=== PATIENT | female | born 1940 | race Caucasian/White ===

== ENCOUNTER 2017-09-25 07:17 | Inpatient (IN) | payer MEDICARE, BC ==
[~2017-09-25] VITALS: Ht 157.5 cm; Wt 69.0 kg
[2017-09-25] VITALS (21 sets, daily range): BP systolic 110–157; BP diastolic 41–77
[~2017-09-25 07:17] MED LIST: APRESOLINE 50MG50 MG PO; ASPERDRINK81 MG PO; ASPIRIN 81MG TA81 MG PO; BENTYL GENERIC10 MG PO; CLOPIDOGREL75 M2 PO; CYCLOBENZAPRINE10 M2 PO; DILTIAZEM HYDR240 M1 PO; GABAPENTIN 100100 MG PO; ISOSORBIDE MON120 MG PO; LEVOTHYROXIN0.125 M1 PO; LISINOPRIL40 MG PO; MAG-OX 400400 MG PO; METFORMIN HYD1000 MG PO; METOPROLOL SUC100 M1 PO; MULTI VITAMINS1 TA1 PO; NOVOLIN 70/30 710 ML SC; PRAVACHOL40 MG PO
[2017-09-25 08:18] LABS: LYMPH # 2.2 K/mm3 (0.7-4.5)
[2017-09-25 08:20] LABS: HEMOGLOBIN 6.2 g/dL (12.2-16.2)
--- OUTSIDE RECORDS SUMMARY | 2017-09-25 08:58 | External Medical Summary Rpt ---
Author Author [facility] Organization [facility] Address Unknown Phone Unavailable Care Team Providers Care Plant Operations Engineer Name Role Phone JERMAINE MUHAMMAD PCP [phone] Encounter [facility] [id number] Date(s): 03/21/17 - 03/30/17 [facility] [address] [place] [address]- [phone] Discharge Disposition: OP Self Care or Home Attending Physician: JOSE JUAN PRITCHETT MD-CAR Admitting Physician: JOSE JUAN PRITCHETT MD-CAR Referring Physician: JOSE JUAN PRITCHETT MD-CAR Reason for Visit OCCLUSION AND STENOSIS OF BILATERAL CAROTID ARTERIES Vital Signs No data available for this section Problem List Condition Effective Status Health Informant Dates Status Acute Active hyperkalemia (Confirmed) Acute renal Active failure (ARF)(Confir med) Anemia due Active to GI blood loss(Confirm ed) Carotid Active artery stenosis(Con firmed) CAD Active (coronary atherosclero tic disease)(Con firmed) Diabetes Active mellitus(Con firmed) GIB Active (gastrointes tinal bleeding)(Co nfirmed) Hx of renal Active artery stenosis(Con firmed) Hx of Active cholecystect tran(Confirme d) HLD Active (hyperlipide yuan)(Confirm ed) HTN Active (hypertensio n)(Confirmed ) PVD Active (peripheral vascular disease) with claudication (Confirmed) Bradycardia, Active severe sinus(Confir med) Subclavian Active artery stenosis, right(Confir med) Allergies, Adverse Reactions, Alerts Substance Reaction Severity Status penicillin swelling~Hives Active swelling Hives sulfa drugs Active Medications gabapentin 100 mg, Oral, Two Times A Day, Refills: 0 hydrALAZINE (hydrALAZINE 50 mg oral tablet) 1 Tab, Oral, Two Times A Day, Refills: 2 Ordering provider: DONALDO RAM APRN insulin isophane-insulin regular (Relion Novolin 70/30 [place]) 20, SubCutaneous , At Bedtime, Refills: 0 insulin isophane-insulin regular (ReliOn/Novolin 70/30) 30, SubCutaneous , Every Morning, Refills: 0 levothyroxine 125 mcg, Oral, Every Day, Refills: 0 lisinopril (lisinopril 40 mg oral tablet) 1 Tab, Oral, Every Day, Refills: 0 metformin (metformin 1000 mg oral tablet) 1 Tab, Oral, Two Times A Day, Refills: 0 metoprolol (Metoprolol Succinate ER 100 mg oral tablet, extended release)1 Tab, Oral, Every Day, Refills: 0 multivitamin 1 Tab, Oral, Every Day, Refills: 0 PRAVAstatin (PRAVAstatin 40 mg oral tablet) 1 Tab, Oral, At Bedtime, Refills: 0 Results No data available for this section Immunizations No data available for this section Procedures No data available for this section Social History Social History Response Type Smoking Status Former smoker Assessment and Plan No data available for this section Hospital Discharge Instructions No data available for this section
--- OUTSIDE RECORDS SUMMARY | 2017-09-25 08:58 | External Medical Summary Rpt ---
Author Author [facility] Organization [facility] Address Unknown Phone Unavailable Care Team Providers Care Sales Producer Name Role Phone JERMAINE MUHAMMAD PCP [phone] Encounter [facility] [id number] Date(s): 03/21/17 - 03/30/17 [facility] [address] [place] [address]- [phone] Discharge Disposition: OP Self Care or Home [...]
--- OUTSIDE RECORDS SUMMARY | 2017-09-25 08:59 | External Medical Summary Rpt ---
Author Author [facility] Organization [facility] Address Unknown Phone Unavailable Care Team Providers Care Sports Book Board Attendant Name Role Phone JERMAINE UMHAMMAD PCP [phone] Encounter [facility] Date(s): 08/11/17 - 08/11/17 [facility] [address] [place] [address]- Discharge Diagnosis: Abdominal pain Discharge Diagnosis: Dark stools Discharge Disposition: OP Self Care or Home Attending Physician: GENET ALEXANDER MD Admitting Physician: GRISELDA, TIAN Reason for Visit UNSPECIFIED ABDOMINAL PAIN Vital Signs Most recent 1 2 3 to oldest [Reference Range]: Temperature Axillary Source (08/11/17 1:35 PM) Temperature Fahrenheit Mode (08/11/17 1:35 PM) Temperature, 98.3 Deg F Fahrenheit (08/11/17 1:35 PM) [96.8-99.7 Deg F] Clinical 36.8 Deg C Temperature, (08/11/17 1:35 PM) C Peripheral 90 bpm Pulse Rate (08/11/17 1:35 PM) [60-100 bpm] Heart Rate 74 bpm 70 bpm 72 bpm Monitored (08/11/17 8:00 PM) (08/11/17 7:30 PM) (08/11/17 7:00 PM) [60-100 bpm] Respiratory 23 Breaths/Min 27 Breaths/Min 29 Breaths/Min Rate [14-20 *HI* *HI* *HI* Breaths/Min] (08/11/17 8:00 PM) (08/11/17 7:30 PM) (08/11/17 7:00 PM) Blood 208/82 mmHg 179/69 mmHg 179/107 mmHg Pressure *HI* *HI* *HI* [90-140/60-9 (08/11/17 8:00 PM) (08/11/17 7:30 PM) (08/11/17 7:00 PM) 0 mmHg] Mean 124 mmHg 106 mmHg 131 mmHg Arterial (08/11/17 8:00 PM) (08/11/17 7:30 PM) (08/11/17 7:00 PM) Pressure (MAP) Mean 121 106 135 Arterial (08/11/17 8:00 PM) (08/11/17 7:30 PM) (08/11/17 7:00 PM) Pressure (MAP)-BMDI Oxygen 98 % 98 % 98 % Saturation (08/11/17 8:00 PM) (08/11/17 7:30 PM) (08/11/17 7:00 PM) [94-100 %] Oxygen Room air Therapy Mode (08/11/17 1:35 PM) Height Stated Source (08/11/17 1:35 PM) Height Entry [place] Format (08/11/17 1:35 PM) Height/Lengt 5 ft h, [place] (08/11/17 1:35 PM) (ft) Height/Lengt 2.5 Inch h [place] (08/11/17 1:35 PM) CLINICALHEIG 158.75 cm HT (08/11/17 1:35 PM) Weight Critical Source, ED estimated dosing weight (08/11/17 1:35 PM) Weight Entry [place] Format (08/11/17 1:35 PM) Weight 147 lb [place] lb (08/11/17 1:35 PM) CLINICALWEIG 66.82 kg HT (08/11/17 1:35 PM) Body Surface 1.69 m2 Area (BSA) (08/11/17 1:35 PM) Body Mass 26.5 kg/m2 Index (BMI) *HI* [19.0-24.0 (08/11/17 1:35 PM) kg/m2] [place] Body 50.88 kg Weight (08/11/17 1:35 PM) Problem List Condition Effective Status Health Informant [...] Reactions, Alerts Substance Reaction Severity Status penicillin Hives Active swelling swelling~Hives sulfa drugs Active Medications gabapentin 100 Milligram(s) Oral Two Times A Day. hydrALAZINE (hydrALAZINE 50 mg oral tablet) 1 Tablet(s) Oral Two Times A Day. Refills: 2. Ordering provider: DONALDO RAM APRN insulin isophane-insulin regular (Relion Novolin 70/30 [place])20 SubCutaneous At Bedtime. insulin isophane-insulin regular (ReliOn/Novolin 70/30)30 SubCutaneous Every Morning. levothyroxine 125 Microgram(s) Oral Every Day. lisinopril (lisinopril 40 mg oral tablet) 1 Tablet(s) Oral Every Day. metformin (metformin 1000 mg oral tablet) 1 Tablet(s) Oral Two Times A Day. metoprolol (Metoprolol Succinate ER 100 mg oral tablet, extended release)1 Tablet(s) Oral Every Day. multivitamin 1 Tablet(s) Oral Every Day. omeprazole (PriLOSEC 20 mg oral delayed release capsule)1 Capsule(s) Oral Every Day. before a meal. Refills: 0.Ordering provider: GENET ALEXANDER MD PRAVAstatin (PRAVAstatin 40 mg oral tablet) 1 Tablet(s) Oral At Bedtime. Results GENERAL CHEMISTRY Most recent 1 2 to oldest [Reference Range]: Sodium Level 138 mmol/L [136-146 (08/11/17 2:37 PM) mmol/L] Potassium 4.4 mmol/L Level (08/11/17 2:37 PM) [3.5-5.1 mmol/L] Chloride 107 mmol/L Level (08/11/17 2:37 PM) [102-112 mmol/L] Carbon 22 mmol/L Dioxide (08/11/17 2:37 PM) Level [21-32 mmol/L] Anion Gap 13 [9-20] (08/11/17 2:37 PM) Glucose 78 mg/dL Level (08/11/17 2:37 PM) [74-106 mg/dL] Blood Urea 27 mg/dL Nitrogen *HI* [7-22 mg/dL] (08/11/17 2:37 PM) Creatinine 1.10 mg/dL Level *HI* [0.55-1.02 (08/11/17 2:37 PM) mg/dL] eGFR 58 mL/min/1.73m2 [>=60 *LOW* mL/min/1.73m (08/11/17 2:37 PM) 2] eGFR 48 mL/min/1.73m2 NonAfrican *LOW* [>=60 (08/11/17 2:37 PM) mL/min/1.73m 2] Bun/Creatini 24.5 ne *HI* [8.0-20.0] (08/11/17 2:37 PM) Calcium 8.4 mg/dL Level *LOW* [8.5-10.1 (08/11/17 2:37 PM) mg/dL] Protein 7.7 Gram/dL Total (08/11/17 2:37 PM) [6.4-8.2 Gram/dL] Albumin 3.7 Gram/dL Level (08/11/17 2:37 PM) [3.4-5.0 Gram/dL] Globulin 4.0 Gram/dL [1.5-4.5 (08/11/17 2:37 PM) Gram/dL] A/G Ratio 0.9 [1.1-2.5] *LOW* (08/11/17 2:37 PM) Bilirubin 0.2 mg/dL Total (08/11/17 2:37 PM) [0.2-1.3 mg/dL] Alk Phos 107 Units/Liter [27-136 (08/11/17 2:37 PM) Units/Liter] AST [5-37 22 Units/Liter Units/Liter] (08/11/17 2:37 PM) ALT [12-78 11 Units/Liter Units/Liter] *LOW* (08/11/17 2:37 PM) Lactic Acid 0.8 mmol/L Level (08/11/17 4:19 PM) [0.4-2.0 mmol/L] CARDIAC SPECIFIC MARKERS Most recent 1 2 to oldest [Reference Range]: Troponin I 0.126 ng/mL 0.138 ng/mL Ultra *HI* *HI* [0.015-0.045 (08/11/17 6:11 PM) (08/11/17 4:12 PM) ng/mL] HEMATOLOGY Most recent 1 2 to oldest [Reference Range]: WBC 11.8 K/uL [4.0-10.0 *HI* K/uL] (08/11/17 2:37 PM) RBC 3.67 Million/uL [3.93-5.22 *LOW* Million/uL] (08/11/17 2:37 PM) Hgb 10.5 Gram/dL [11.2-15.7 *LOW* Gram/dL] (08/11/17 2:37 PM) Hct 32.3 % [34.1-44.9 *LOW* %] (08/11/17 2:37 PM) MCV 88.0 fL [79.0-94.8 (08/11/17 2:37 PM) fL] MCH 28.6 pg [25.6-32.2 (08/11/17 2:37 PM) pg] MCHC 32.5 Gram/dL [32.2-36.5 (08/11/17 2:37 PM) Gram/dL] Platelet 494 K/uL Count *HI* [163-369 (08/11/17 2:37 PM) K/uL] MPV 9.5 fL [9.4-12.4 (08/11/17 2:37 PM) fL] RDW 13.8 % [11.6-14.4 (08/11/17 2:37 PM) %] Neut % 72.4 % [34.0-71.0 *HI* %] (08/11/17 2:37 PM) Neut # 8.57 K/uL [1.56-6.13 *HI* K/uL] (08/11/17 2:37 PM) Lymph % 20.9 % [19.3-53.1 (08/11/17 2:37 PM) %] Lymph # 2.47 K/uL [1.18-3.74 (08/11/17 2:37 PM) K/uL] [place] % 6.3 % [3.0-9.0 %] (08/11/17 2:37 PM) [place] # 0.75 K/uL [0.16-1.00 (08/11/17 2:37 PM) K/uL] Eos % 0.1 % [0.0-7.0 %] (08/11/17 2:37 PM) Eos # 0.01 K/uL [0.00-0.80 (08/11/17 2:37 PM) K/uL] Baso % 0.3 % [0.0-1.5 %] (08/11/17 2:37 PM) Baso # 0.03 K/uL [0.00-0.20 (08/11/17 2:37 PM) K/uL] Slide Review No (08/11/17 2:37 PM) COAGULATION Most recent 1 2 to oldest [Reference Range]: PT [9.5-11.3 11.8 Second(s) Second(s)] *HI* (08/11/17 2:37 PM) INR 1.1 [0.0-1.1] (08/11/17 2:37 PM) BLOOD BANK Most recent 1 2 to oldest [Reference Range]: ABO/Rh O POS (ECHO) *Unknown* (08/11/17 4:21 PM) ABO/Rh O POS Repeat *Unknown* (08/11/17 2:37 PM) Antibody ID Anti-JkA Anti-C *Unknown* *Unknown* (08/11/17 4:21 PM) (08/11/17 4:21 PM) Antibody Positive Screen (08/11/17 4:21 PM) Antigen Type JkA Neg C Neg *Unknown* *Unknown* (08/11/17 4:21 PM) (08/11/17 4:21 PM) Immunizations No data available for this section Procedures No data available for this section Social History Social History Response Type Smoking Status Former smoker Assessment and Plan No data available for this section Hospital Discharge Instructions Patient EducationAbdominal Pain, Adult
--- OUTSIDE RECORDS SUMMARY | 2017-09-25 08:59 | External Medical Summary Rpt ---
Author Author [facility] Organization [facility] Address Unknown Phone Unavailable Care Team Providers Care Manager Intensive Care Name Role Phone JERMAINE MUHAMMAD PCP [phone] Encounter [facility] Date(s): 08/11/17 - 08/11/17 [facility] [address] [place] [address]- [phone] Discharge Diagnosis: Abdominal pain Discharge Diagnosis: Dark [...] Stated Source (08/11/17 1:35 PM) Height Entry [place] Format (08/11/17 1:35 PM) Height/Lengt 5 ft h, [place] (08/11/17 1:35 PM) (ft) Height/Lengt 2.5 Inch h [place]ALL[place] (08/11/17 1:35 PM) CLINICALHEIG 158.75 cm HT (08/11/17 1:35 PM) Weight Critical Source, ED estimated dosing weight (08/11/17 1:35 PM) Weight Entry [place] Format (08/11/17 1:35 PM) Weight 147 lb [place] lb (08/11/17 1:35 PM) CLINICALWEIG 66.82 kg HT (08/11/17 1:35 PM) Body Surface 1.69 m2 Area (BSA) (08/11/17 1:35 PM) Body Mass 26.5 kg/m2 Index (BMI) *HI* [19.0-24.0 (08/11/17 1:35 PM) kg/m2] [place] Body 50.88 kg Weight (08/11/17 1:35 PM) [...] 2.47 K/uL [1.18-3.74 (08/11/17 2:37 PM) K/uL] [place] % 6.3 % [3.0-9.0 %] (08/11/17 2:37 PM) [place] # 0.75 K/uL [0.16-1.00 (08/11/17 2:37 PM) [...]
--- OUTSIDE RECORDS SUMMARY | 2017-09-25 09:00 | External Medical Summary Rpt ---
Author Author [facility], [facility] Organization [facility] [employer] Address Unknown Phone Unavailable
--- OUTSIDE RECORDS SUMMARY | 2017-09-25 09:00 | External Medical Summary Rpt | CCD ---
Author Author , TRACIE HODGES Address Unknown Phone [email or web address] Immunization Name Date Rout CVX Reac Dose Comm Prov Is Faci e tion ent ider Refu lity Give sed n Tdap 01-1 Intr 115 0.5 Hist WALM No WALM , 9-20 amus mL oric ART4 ART4 Adso 17 cula al 93 93 rbed r Info rmat ion - Sour ce Unsp ecif ied PCV1 01-1 133 0.5 Hist WALM No WALM 3 9-20 mL oric ART4 ART4 17 al 93 93 Info rmat ion - Sour ce Unsp ecif ied PPV2 10-0 Intr 33 999 Hist H191 No H191 3 6-20 amus oric 04 cula al r Info rmat ion - Sour ce Unsp ecif ied
--- OUTSIDE RECORDS SUMMARY | 2017-09-25 09:00 | External Medical Summary Rpt | CCD ---
Author Author , TRACIE HODGES Address Unknown Phone [email or web address] Immunization Name Date Rout CVX Reac Dose [...]
--- OUTSIDE RECORDS SUMMARY | 2017-09-25 09:00 | External Medical Summary Rpt | CCD ---
Author Author , [facility] Organization [facility] Address Unknown Phone [email or web address] Purpose Continuity of Care Document - 09-25-2017 through 2016 Results Labs Lab Lab Date Result Refere Interp Status Commen Order Detail nces retati t Range on CBC w auto diff (09-25-2017 08:10) Comment: COMMENTS TO DIGITAL ACCOUNT SUPERVISOR: PT IN [place] 4 Blood = 3.8 1.8-7.8 complet granulo 017 K/mm3 ed cytes 08:10 automat ed count (numb Granulo = 58.8 37.0-80 complet cyte 017 % .0 ed percent 08:10 age Blood = 21.0 37.0-47 complet hematoc 017 % .0 ed rit 08:10 (volume fractio n) Comment: CRITICAL RESULTS Comment: RESULTS CALLED TO: VALENTIN.ALS 09/25/17819 Rodrigo Schulz Comment: Jazlyn Blood = 6.2 12.2-16 complet hemoglo 017 g/dL .2 ed bin 08:10 measure ment (mass/v olum Comment: CRITICAL RESULTS Comment: RESULTS CALLED TO: VALENTIN.ALS 09/25/17819 Rodrigo Schulz Comment: Jazlyn Absolut = 2.2 0.7-4.5 complet e 017 K/mm3 ed lymphoc 08:10 yte count Lymphoc = 33.0 10-50.0 complet yte 017 % ed count, 08:10 blood, automat ed Automat = 0.0 0-0.2 complet ed 017 K/MM3 ed blood 08:10 basophi l count (count/ vo Baso % = 0.5 % 0.1-2.0 complet 017 ed 08:10 Automat 2 = 0.0 0.0-0.4 complet ed 017 K/mm3 ed blood 08:10 eosinop hil count Automat = 0.7 % 0.1-12. complet ed 017 0 ed blood 08:10 eosinop hils/10 0 leukocy t Mean = 26.6 27-31.2 complet corpusc 017 pg ed ular 08:10 hemoglo bin (MCH) determ Automat = 29.7 31.8-35 complet ed 017 g/dl .4 ed erythro 08:10 cyte mean corpusc ular h Automat = 89.6 82.2-97 complet ed 017 fl .8 ed erythro 08:10 cyte mean corpusc ular v Absolut = 0.5 0.1-1.0 complet e 017 K/mm3 ed monocyt 08:10 e count [place] % = 6.9 % 1.7-9.3 complet 017 ed 08:10 Automat = 8.4 7.4-10. complet ed 017 fl 4 ed blood 08:10 platele t mean volume du Blood = 305 142-424 complet platele 017 K/mm3 ed t count 08:10 Automat = 15.4 11.5-17 complet ed 017 % .5 ed erythro 08:10 cyte distrib ution width Blood = 6.5 4.8-10. complet leukocy 017 K/MM3 8 ed regan 08:10 count (number /volume ) Red = 2.35 4.2-5.4 complet blood 017 M/mm3 ed cell 08:10 count Basic metabolic panel (09-25-2017 08:10) Comment: COMMENTS TO DIGITAL ACCOUNT SUPERVISOR: PT IN [place] 4 Serum = 22 7-18 complet or 017 mg/dL ed plasma 08:10 urea nitroge n measure men Serum = 8.0 8.5-10. complet or 017 mg/dL 1 ed plasma 08:10 calcium measure ment (mas Serum = 104 98-107 complet or 017 mmoL/L ed plasma 08:10 chlorid e measure ment (mo Carbon = 22 21.0-32 complet dioxide 017 mmoL/L .0 ed 08:10 measure ment Serum = 1.3 0.55-1. complet or 017 mg/dL 02 ed plasma 08:10 creatin ine measure ment ( Estimat = 38 50-200 complet ion of 017 ML/MIN ed creatin 08:10 ine renal clearan ce Estimat = 40 59- complet ed 017 ML/MIN ed glomeru 08:10 lar filtrat ion rate (GF Comment: REFERENCE RANGE: >60 ML/MIN/1.73 SQUARE METERS Comment: If this patient is -Austrian, then multiply the Comment: result by 1.210. Serum = 136 74-106 complet or 017 mg/dL ed plasma 08:10 glucose measure ment (mas Serum = 4.4 3.5-5.1 complet potassi 017 mmoL/L ed um 08:10 measure ment Serum = 136 136-145 complet sodium 017 mmoL/L ed measure 08:10 ment Glucose capillary blood glucometer (09-25-2017 07:28) Glucose = 155 70-110 complet 017 mg/dl ed capilla 07:[address]
--- OUTSIDE RECORDS SUMMARY | 2017-09-25 09:00 | External Medical Summary Rpt | CCD ---
Author Author , [facility] Organization [facility] Address Unknown Phone .[employer] Purpose Continuity of Care Document - 09-25-2017 through 2016 Results Labs Lab Lab Date Result Refere Interp Status Commen Order Detail nces retati t Range on CBC w auto diff (09-25-2017 08:10) Comment: COMMENTS TO BILINGUAL MANAGER: PT IN [place] 4 Blood = 3.8 [...] 017 K/mm3 ed monocyt 08:10 e count [place] % = 6.9 % 1.7-9.3 complet 017 [...] metabolic panel (09-25-2017 08:10) Comment: COMMENTS TO BILINGUAL MANAGER: PT IN [place] 4 Serum = 22 [...] SQUARE METERS Comment: If this patient is -Gibraltarian, then multiply the Comment: result by 1.210. [...]
--- OUTSIDE RECORDS SUMMARY | 2017-09-25 09:00 | External Medical Summary Rpt | CCD ---
Author Author [facility] Organization [facility] Address Unknown Phone Unavailable Purpose Continuity of Care Document - through 2016
--- NOTE | 2017-09-25 10:09 | PHARMACY CLINIC NOTE ---
Patient Demographics Patient Demographics Admission date: 09/25/17 Date: 09/25/17 Time: 1008 Allergies Coded Allergies: Penicillins (LIPS SWELLING, VANGINA TURNS OUT 09/20/17) HEIGHT- FT: 5 IN: 3.00 K.040 VTE General Information Labs: Laboratory Tests 09/25 810 Hematology Hgb (12.2 - 16.2 g/dL) 6.2 *L Hct (37.0 - 47.0 %) 21.0 *L Plt Count (142 - 424 K/mm3) 305 Disclaimer The following section includes nursing documentation that has been pulled in for pharmacy review. VTE prophylaxis NQF 0371 VTE prophylaxis ordered? Yes Type of prophylaxis/treatment: IVETTE at 1008
[2017-09-25 10:43] LABS: ABO BLOOD TYPE O; RH BLOOD TYPE POSITIVE
[2017-09-25] MEDS ORDERED: NOVOLIN 70/30 710 ML SC ×2 (14:46→14:47)
[2017-09-25] MEDS ORDERED: GLUCOPHAGE500 MG PO (14:47)
[2017-09-25] MEDS ORDERED: HYDROCHLOROTHIA25 M1 PO (14:48)
[2017-09-25] MEDS ORDERED: APRESOLINE 50MG50 MG OR (14:48)
[2017-09-25] MEDS ORDERED: METOPROLOL TAR100 MG PO (14:49)
[2017-09-25] MEDS ORDERED: IMDUR 60MG. TAB60 MG PO (14:50)
[2017-09-25] MEDS ORDERED: FISH OIL OMEGA1 EAC2 PO (14:50)
[2017-09-25] MEDS ORDERED: CILOSTAZOL50 MG PO (14:51)
--- NOTE | 2017-09-25 15:01 | HISTORY AND PHYSICAL REPORT ---
History and Physical (FCA) Date of admission: 09/25/17 Chief complaint: Anemia History: History of Present Illness: Mrs. Daily is a 77yo WF with a history of DM, HTN, CAD with stents, and HLP. She reports a 2-3 month history of melena and frequent diarrhea for which she had been seeing her PCP Subha Martinez APRN. She had additionally developed some fatigue, weakness, and dizziness over the past week. She was scheduled for evaluation with endoscopy by Dr. Cortés today, however, upon admission she was noted to be anemic with H&H 6.2/21.0. Her case was discussed with Dr. Howell for service and she was admitted for transfusion and monitoring. Past Medical History: Medical History: CAD? Yes Angina: No [place]: No Hypertension? Yes Hyperlipidemia? Yes CHF? No COPD? Yes Asthma? No Anemia? Yes GERD? Yes Gastric ulcers? No GI Bleed? No Hernia? No Thyroid Problems? Yes Hypothyroidism? Yes CVA? No Seizures? No Diabetes? Yes Insulin Dependent: Yes Insulin Pump: No Home FSBS? Yes Renal Insuffiency? No UTI? No Stones? Yes GB Disease: Yes Nephritic Syndrome? No Asplenia? No Hepatitis? No Sickle Cell Disease? No Cataracts? Yes Glaucoma? No MRSA? Yes HIV? Yes TB? No Anxiety? No Depression? No Cancer? No Surgical history: Previous Surgery? 1. RT KNEE REPLACEMENT 2. GALLBLADDER 3. BLADDER SURGERY 4. HYSTERECTOMY 5. THYROIDECTOMY 6. BILAT CARPAL TUNNEL 7. LT ROTATOR CUFF REPAIR 8. RT BREAST BIOPSY(BENIGN) 9. CARDIAC STENTS 2004 10. KIDNEY STENTS 11. BILAT FEMORAL STENTS 12. LT ARM STENT 2007 13. BILAT CAROTID ENDARTERECTOMY 14. BILAT CATARACT REMOVAL Medications: Discontinued Scripts Magnesium Oxide (Mag-Ox 400) 400 MG PO BID 5 Days Prov: 12/04/14 DC: 09/25/17 1452 Reported Medications Pravastatin Sodium (Pravachol) 40 MG PO QHS #30 Levothyroxine Sodium 0.125 MG PO DAILY #30 Lisinopril (Lisinopril 40MG) 40 MG PO DAILY #30 INSULIN NPH HUM/REG INSULIN HM (Novolin 70-30 100 Unit/Ml Vial) 20 UNITS SC QAM INSULIN NPH HUM/REG INSULIN HM (Novolin 70-30 100 Unit/Ml Vial) 10 UNITS SC QPM METFORMIN HCL (Glucophage) 500 MG PO BID HYDROCHLOROTHIAZIDE (Hydrochlorothiazide) 25 MG PO DAILY Hydralazine Hcl (Apresoline 50MG Tab) 50 MG OR BID Metoprolol Tartrate (Metoprolol 100MG) 100 MG PO BID ISOSORBIDE MONONITRATE (Isosorbide Mononitrate ER) 60 MG PO DAILY [place]-3S/Dha/Epa/Fish Oil (Fish Oil [place]-3 Softgel) 1 EACH PO DAILY Cilostazol 50 MG PO DAILY GABAPENTIN (Gabapentin 100MG Capsule) 100 MG PO BID #60 MULTIVITAMIN (One Daily Multivitamin) 1 TAB PO DAILY ASPIRIN (Aspirin) 81 MG PO DAILY Cyclobenzaprine Hcl (Cyclobenzaprine Hydrochloride) 10 MG PO BID #60 Discontinued Reported Medications METFORMIN HCL (Metformin Hydrochloride) 1,000 MG PO BID #60 DC: 09/25/17 1452 METOPROLOL SUCCINATE XL (Metoprolol Succinate) 100 MG PO DAILY #30 DC: 09/25/17 1452 INSULIN NPH HUM/REG INSULIN HM (Novolin 70-30 100 Unit/Ml Vial) 30 UNITS SC QAM #10 DC: 09/25/17 1452 Hydralazine Hcl (Apresoline 50MG Tab) 50 MG PO DAILY #30 DC: 09/25/17 1452 INSULIN NPH HUM/REG INSULIN HM (Novolin 70-30 100 Unit/Ml Vial) 20 UNITS SC QPM Dicyclomine Hcl (Bentyl (Generic) 10MG Capsule) 10 MG PO BID #90 DC: 09/25/17 1452 Allergies: Coded Allergies: Penicillins (LIPS SWELLING, VANGINA TURNS OUT 09/20/17) Family History: Family history: Postive for: unknown. Social History: Smoking Hx Tobacco: No Smoker: Former Smoker Type: Cigarettes Packs/day: N/A Are you exposed to second hand No Alcohol: Alcohol: No Hx of Drug Use: Drug Use? No Patien't marital status is: Patient's support system is: good Recent travel: none Review of Systems: Patient unresponsive? No Constitutional Positive for: fatigue, weak. No: chills. ENT No: nasal congestion, sore throat. Cardiovascular No: ATKINS, edema, palpitations. Respiratory No: dyspnea on exertion, shortness of air, productive cough (sputum). GI Positive for: GERD, diarrhea, hematochezia, melena. No: abdominal pain, constipation, nausea, rectal pain, vomitting. (female) No: frequency, hematuria, pelvic pain. Skin No: rash. Neurological Positive for: dizziness, light headed, weakness. No: confusion, gait problem, numbness, syncope. Immune/allergy No: itching. Eyes No: blurry vision, vision loss. Musculoskeletal No: extremity pain, joint pain. Heme Positive for: bleeding. No: bruising. Psychiatric No: confused, change in mental status. Physical Exam: Vital signs: 1ST Vital Signs Result Date Time Pulse Ox 95 09/25 802 B/P 66/45 09/25 802 Temp 97.8 09/25 802 Pulse 80 09/25 802 Resp 18 09/25 802 O2 Delivery ROOM AIR 09/25 1102 Exam: General appearance: alert, awake, no acute distress Eyes: anicteric, PERRLA ENT: mucous membranes moist, pharynx normal Neck: non-tender, supple, no LAD Cardiovascular: regular rate & rhythm, normal peripheral pulses Respiratory: CTAB A&P ABD: non-distended, no rebound, soft, no tenderness, no guarding, no organomegaly, no palpable mass, bowel sounds present Extremities: moves all, no peripheral edema, warm, no calf tenderness Lab data: Labs: Laboratory Tests 09/25/17 1000: Antibody Screen POSITIVE H, Miscellaneous Test POSITIVE 09/25/17 0810: Sodium 136, Potassium 4.4, Chloride 104, Carbon Dioxide 22, BUN 22 H, Creatinine 1.3 H, Estimated Creat Clear 38 L, Estimated GFR (MDRD) 40 L, Glucose 136 H, Calcium 8.0 L, WBC 6.5, RBC 2.35 L, Hgb 6.2 *L, Hct 21.0 *L, MCV 89.6, RDW 15.4, Plt Count 305, MPV 8.4, Gran % 58.8, Gran # 3.8, Lymphocytes % 33.0, Monocytes % 6.9, Eosinophils % 0.7, Basophils % 0.5, Lymphocytes # 2.2, Monocytes # 0.5, Eosinophils # 0.0, Basophils # 0.0, PUBS MCHC 29.7 L, MCH 26.6 L 09/25/17 0728: POC Glucose 155 H Diagnosis(es): 1. Anemia 2. GI bleed 3. Diabetes mellitus 4. HTN (hypertension) 5. Dizziness 6. Acute renal insufficiency Plan: transfuse PRBC's. Further per GI. (DARA AKHTAR APRN) History: History of Present Illness: Patient was also hypotensive in Pre-op this morning, SBP in the 60's. She also reports having numerous cardiac and peripheral stens in the past. Diagnosis(es): 1. Hypotension Status: Acute 2. Anemia 3. GI bleed 4. Diabetes mellitus Status: Chronic 5. HTN (hypertension) Status: Chronic 6. Dizziness Status: Acute 7. Renal insufficiency 8. CAD (coronary artery disease) Status: Chronic 9. PAD (peripheral artery disease) Status: Chronic Plan: Patient seen and agree with above note. If BP responds to IVF will proceed with EGD today, transfusion ordered. (Juan Howell MD) at 1501 at 1526
--- NOTE | 2017-09-25 16:07 | Operative Note ---
Upper GI Endoscopy Procedure date: 09/25/17 Date of : 38 Procedure:Upper GI Endoscopy Esophagogastroduodenoscopy with cold biopsies and APC ablation Indications: Mrs. Daily is a 77-year-old female with melanotic stools. She has had dark stools since July 2017. The patient is on baby aspirin and Cilostazol ( anticoagulation). The patient reports no abdominal pain but has had some weight loss and fatigue. She came in for routine upper endoscopy and had some hypotension. Hemoglobin and hematocrit drawn today showed hemoglobin 6.2 and hematocrit 21.0. The patient did have a colonoscopy a year ago with Dr. Bryan Aburto which was normal. Performing Provider: Rosa Cortés MD Referring Provider: Subha ENRIQUEZ Sedation: MAC sedation Procedure: Prior to the procedure, a history and physical exam was performed, and patients medications and allergies were reviewed. The risks and benefits of the procedure and the sedation options and risks were discussed with the patient. All questions were answered and informed consent was obtained. The patient was brought to the procedure room. Patient identification and proposed procedure were verified by the physician and the nurse. The patient was placed in a left lateral decubitus position and the scope was passed under direct vision. Throughout the procedure, the patient's blood pressure, pulse, and oxygen saturations were monitored continuously. The endoscope was introduced through the mouth, and advanced to the second part of duodenum. The upper GI endoscopy was accomplished without difficulty. The patient tolerated the procedure well. Findings: The scope was passed directly into the upper esophagus and advanced to the third portion of the duodenum. The post bulbar duodenum and duodenal bulb were normal with normal mucosa and conniventes. There was a small lymphangiectasia in the third portion of the duodenum. There was no evidence of duodenal ulcer disease or celiac disease. The scope was withdrawn through a normal duodenal bulb and pylorus into the stomach. 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 There was some very mild chronic gastritis. Upon retroflexion there was no hiatal hernia. 2 biopsies were taken along the lesser curvature for histology. The scope was then withdrawn into the esophagus. There was no evidence of reflux esophagitis or Vernon's. The remainder of the esophageal mucosa was normal. Immediate complications: None EBL (ml): 0 Impression: 1. 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 I would repeat Hemoccult testing. These are strongly Hemoccult- positive, I would consider repeating colonoscopy and/or video capsule enteroscopy. I would also consider parenteral iron replacement if her iron studies are indicative of iron deficiency. at 1601
[2017-09-25 21:44] LABS: ANTIHUMAN GLOB CROSSMATCH COMPAT
[2017-09-25 21:46] LABS: ANTIHUMAN GLOB CROSSMATCH COMPAT
[2017-09-26] VITALS (16 sets, daily range): BP systolic 131–183; BP diastolic 47–82
[2017-09-26 03:08] LABS: HEMOGLOBIN 8.9 g/dL (12.2-16.2)
--- NOTE | 2017-09-26 09:20 | ACUTE CARE PROGRESS NOTE (QUA) ---
Progress Notes Subjective Date 09/26/17 Time 0918 Note Patient feels nauseated this morning, received 2 units of PRBCs overnight. Objective Findings Laboratory Tests 09/26/17 0541: POC Glucose 129 H 09/26/17 0255: Hgb 8.9 L, Hct 28.3 L 09/26/17 0010: Misc Test Units BLOOD UNIT RELEASE 09/25/17 2200: Misc Test Units BLOOD UNIT RELEASE 09/25/17 1000: Antibody Screen POSITIVE H, Miscellaneous Test POSITIVE Vital Signs Date Time Temp Pulse Resp B/P Pulse O2 O2 Flow FiO2 Ox Delivery Rate 09/26 075 98.6 97 18 177/78 97 ROOM AIR 09/26 0431 98.9 97 20 177/72 93 ROOM AIR 09/26 0250 98.2 104 20 141/53 09/26 0150 98.1 94 20 131/72 09/26 0120 98.2 96 20 133/70 09/26 0105 98.1 88 20 164/47 09/26 0050 99.0 92 20 154/49 09/26 0035 98.2 90 20 147/66 09/26 0030 98.3 90 20 153/66 09/26 0025 97.8 91 20 179/61 09/26 0020 97.8 92 20 155/58 09/25 2355 97.1 96 16 111/70 09/25 2305 98.2 86 16 156/59 09/25 2250 98.4 89 16 117/41 09/25 2235 98.3 88 17 126/46 09/25 2220 98.3 89 15 141/41 09/25 2215 98.4 89 17 146/75 09/25 2210 98.4 88 16 137/53 09/25 2205 98.5 87 16 133/53 09/25 2045 99.1 86 17 136/56 97 ROOM AIR 09/25 2025 97.8 94 20 137/51 98 ROOM AIR 09/25 1945 97.4 96 15 133/50 99 ROOM AIR 09/25 1920 98.3 99 16 136/56 99 09/25 1845 98.0 86 20 157/59 96 ROOM AIR 09/25 1815 98.2 91 16 146/53 98 ROOM AIR 09/25 1745 98.0 88 18 139/77 96 ROOM AIR 09/25 1730 98.2 90 20 134/53 98 ROOM AIR 09/25 1715 98.1 84 18 156/61 98 ROOM AIR 09/25 1706 76 16 130/61 09/25 1704 88 16 121/54 09/25 1700 98.1 87 20 142/54 97 ROOM AIR 09/25 1645 98.2 92 16 131/66 97 OXYGEN 09/25 1617 98.1 77 16 130/58 100 OXYGEN 09/25 1543 98 09/25 1200 97.8 77 16 115/47 98 ROOM AIR 09/25 1102 97.8 72 18 110/67 96 ROOM AIR I&O Past 24 Hrs-ending at 0700 09/26 0700 Intake Total 2144 Output Total 1100 Balance 1044 Last VS-Temp:98.6 B/P:177/78 Pulse:97 Resp:18 SaO2:97 ROOM AIR Last weight lbs:152 oz:1 K.975 Method:Bed Scales Exam General appearance: alert, awake, no acute distress Cardiovascular: regular rate & rhythm Respiratory: clear to auscultation ABD: normal bowel sounds, soft, no tenderness Assessment/Plan Problem List 1. Hypotension Status: Resolved 2. Anemia 3. GI bleed 4. Diabetes mellitus Status: Chronic 5. HTN (hypertension) Status: Chronic 6. Dizziness Status: Acute 7. Renal insufficiency 8. CAD (coronary artery disease) Status: Chronic 9. PAD (peripheral artery disease) Status: Chronic This inpt stay is expected to cross 2 MNs from start of care Yes Comments: Patient has improved, she would like to try a soft diet, plan to check H/H tomorrow morning. at 0920
[2017-09-27 00:25] VITALS: BP 146/57
[2017-09-27 04:30] VITALS: BP 154/57
[2017-09-27 07:47] VITALS: BP 157/69
--- NOTE | 2017-09-27 08:17 | ACUTE CARE PROGRESS NOTE (QUA) ---
Progress Notes Subjective Date 09/27/17 Time 0815 Note Patient states she is feeling much better today. She slept well and ate well and has no pain. Objective Findings Last VS-Temp:98.4 B/P:157/69 Pulse:100 Resp:18 SaO2:94 ROOM AIR Last weight lbs:152 oz:1 K.975 Method:Bed Scales Exam General appearance: alert, awake, no acute distress Cardiovascular: regular rate & rhythm Respiratory: clear to auscultation ABD: non-distended, normal bowel sounds, no rebound, soft, no tenderness, no guarding Extremities: no peripheral edema Assessment/Plan Problem List 1. Hypotension Status: Resolved 2. Anemia 3. GI bleed 4. Diabetes mellitus Status: Chronic 5. HTN (hypertension) Status: Chronic 6. Dizziness Status: Acute 7. Renal insufficiency 8. CAD (coronary artery disease) Status: Chronic 9. PAD (peripheral artery disease) Status: Chronic Plan: Pt improving. Awaiting H&H this am. This inpt stay is expected to cross 2 MNs from start of care Yes (Clarice Hernandez) Assessment/Plan Problem List 1. Hypotension Status: Resolved 2. Anemia 3. GI bleed 4. Diabetes mellitus Status: Chronic 5. HTN (hypertension) Status: Chronic 6. Dizziness Status: Acute 7. Renal insufficiency 8. CAD (coronary artery disease) Status: Chronic 9. PAD (peripheral artery disease) Status: Chronic Comments: Patient seen and agree with above note, possible discharge later today. (Juan Howell MD) at 0816 at 0815
[2017-09-27 08:42] LABS: HEMOGLOBIN 8.4 g/dL (12.2-16.2)
[2017-09-27 09:19] VITALS: BP 157/69
[2017-09-27] MEDS ORDERED: FAMOTIDINE20 MG PO (09:57)
[2017-09-27 11:45] VITALS: BP 157/69
== END 2017-09-27 11:30 | disposition home or self-care (01) | DRG 379 ==
LOC: SDC 07:17 → 2ND 08:56 → ICU 09:15 → SDC 14:00 → 2ND 09-26 17:28
PROVIDERS: Family Medicine; Internal Medicine Gastroenterology
PROC: 0DB68ZX Excision of Stomach, Via Natural or Artificial Opening Endoscopic, Diagnostic (ICD-10-PCS; principal; 2017-09-25 08:30)
PROC: 0W3P8ZZ Control Bleeding in Gastrointestinal Tract, Via Natural or Artificial Opening Endoscopic (ICD-10-PCS; principal; 2017-09-25 08:30)
DX: K31.811 Angiodysplasia of stomach and duodenum with bleeding (principal); E11.9 Type 2 diabetes mellitus without complications; I10 Essential (primary) hypertension; I25.10 Atherosclerotic heart disease of native coronary artery without angina pectoris
CPT/HCPCS: C2618; J2405; P9016

== ENCOUNTER 2017-10-09 09:04 | Inpatient (IN) | payer MEDICARE, BC ==
[~2017-10-09] VITALS: Ht 160 cm; Wt 66.2 kg
[2017-10-09] VITALS (21 sets, daily range): BP systolic 108–155; BP diastolic 30–74
[~2017-10-09 09:04] MED LIST changes: +APRESOLINE 50MG50 MG OR; +CILOSTAZOL50 MG PO; +FAMOTIDINE20 MG PO; +FISH OIL OMEGA1 EAC2 PO; +GLUCOPHAGE500 MG PO; +HYDROCHLOROTHIA25 M1 PO; +IMDUR 60MG. TAB60 MG PO; +METOPROLOL TAR100 MG PO
[2017-10-09 10:01] LABS: LYMPH # 1.7 K/mm3 (0.7-4.5); LYMPH % 26.2 % (10-50.0)
[2017-10-09 10:04] LABS: HEMOGLOBIN 7.1 g/dL (12.2-16.2)
--- NOTE | 2017-10-09 11:17 | Operative Note ---
Colonoscopy (Moo) Procedure date: 10/09/17 Date of : 38 Procedure:Colonoscopy Colonoscopy Indications: Mrs. Daily is a 77-year-old female with melanotic stools and gastrointestinal blood loss. She had an EGD with me on September 25, 2017 which showed GAVE/ watermelon stomach and had APC ablation. She also received blood transfusion at that time. She returns today with symptomatic anemia. She is off of Plavix. She has had weakness and dyspnea. She continues to have melanotic stools. She had a normal colonoscopy with Dr. Bryan Aburto one year ago. She had a colonoscopy with me showing 2 small polyps of the descending colon in February 2013 (tubular adenomas 2). The patient reports no abdominal pain. She does have chronic constipation. Performing Provider: Rosa Cortés MD Referrring Provider: Juan Howell M.D. Sedation: MAC sedation Procedure: Prior to the procedure, a history and physical exam was performed, and patient medications and allergies were reviewed. The risks and benefits of the procedure and the sedation options and risks were discussed with the patient. All questions were answered and informed consent was obtained. Patient identification and proposed procedure were verified by the physician and the nurse. The patient was placed in a left lateral decubitus position. Throughout the procedure, the patient's blood pressure, pulse, and oxygen saturations were monitored continuously. Findings: On digital rectal examination there was normal rectal tone. There were no external hemorrhoids. The colonoscope was introduced through the anal canal to the rectum and advanced to the cecum. The ileocecal valve and appendiceal orifice were identified. The scope was advanced a short distance into the ileum which appeared grossly normal. The scope was then withdrawn into the colon. The cecum, ascending and transverse colon and mucosa were grossly normal. There were scattered diverticuli throughout the descending and sigmoid colon (LEFT colon). The rectum itself was normal. Upon retroflexion within the rectum there were grade 1 internal hemorrhoids. Impressions: 1. Extensive left-sided diverticulosis 2. Grade 1 internal hemorrhoids Recommendations: There was no clear source for the patient's anemia or melanotic stools. I do feel that this is certainly in part related to the watermelon stomach/ GAVE but her hemoglobin/hematocrit today had dropped further even after APC ablation. I am going to recommend video capsule enteroscopy to evaluate further. I would like to obtain the results of her Hemoccult testing. Complications: None EBL (ml): 0 at 8429
[2017-10-09 11:35] LABS: ABO BLOOD TYPE O; RH BLOOD TYPE POSITIVE
--- OUTSIDE RECORDS SUMMARY | 2017-10-09 11:41 | External Medical Summary Rpt | CCD ---
Author Author , TRACIE Organization TRACIE Address Unknown Phone [email or web address] Purpose Continuity of Care Document - 09-25-2017 through 2016 Problems Code Diagnosis DOS Provider Status E78.5 Hyperlipide yuan, unspecified I10 Essential (primary) hypertensio n I25.10 Atheroscler otic heart disease of [place] coronary artery without angina pectoris I73.9 Peripheral vascular disease, unspecified K92.1 Melena R10.84 Generalized abdominal pain R10.9 Unspecified abdominal pain R19.5 Other fecal abnormaliti es Z79.84 group home (current) use of oral hypoglycemi c drugs Z79.899 Other [place] (current) drug therapy Z87.891 Personal history of nicotine dependence Z88.0 Allergy status to penicillin Z88.2 Allergy status to sulfonamide s status Z90.49 Acquired absence of other specified parts of digestive tract Results Labs Lab Lab Date Result Refere Interp Status Commen Order Detail nces retati t Range on CBC w auto diff (10-09-2017 09:52) Comment: COMMENTS TO MAINTENANCE REPAIRER: GOTTEN WITH IV Automat = 0.1 0-0.2 complet ed 017 K/MM3 ed blood 09:52 basophi l count (count/ vo Baso % = 0.7 % 0.1-2.0 complet 017 ed 09:52 Automat = 0.0 0.0-0.4 complet ed 017 K/mm3 ed blood 09:52 eosinop hil count Automat = 0.4 % 0.1-12. complet ed 017 0 ed blood 09:52 eosinop hils/10 0 leukocy t Blood = 4.2 1.8-7.8 complet granulo 017 K/mm3 ed cytes 09:52 automat ed count (numb Granulo = 65.8 37.0-80 complet cyte 017 % .0 ed percent 09:52 age Blood = 24.1 37.0-47 complet hematoc 017 % .0 ed rit 09:52 (volume fractio n) Blood = 7.1 12.2-16 complet hemoglo 017 g/dL .2 ed bin 09:52 measure ment (mass/v olum Comment: CRITICAL RESULTS Comment: RESULTS CALLED TO: REBR 10/09/17 1003 Cracraft,Stephanie Absolut = 1.7 0.7-4.5 complet e 017 K/mm3 ed lymphoc 09:52 yte count Lymphoc = 26.2 10-50.0 complet yte 017 % ed count, 09:52 blood, automat ed Mean = 26.3 27-31.2 complet corpusc 017 pg ed ular 09:52 hemoglo bin (MCH) determ Automat = 29.4 31.8-35 complet ed 017 g/dl .4 ed erythro 09:52 cyte mean corpusc ular h Automat = 89.4 82.2-97 complet ed 017 fl .8 ed erythro 09:52 cyte mean corpusc ular v Absolut = 0.4 0.1-1.0 complet e 017 K/mm3 ed monocyt 09:52 e count Todd % = 6.9 % 1.7-9.3 complet 017 ed 09:52 Automat = 7.4 7.4-10. complet ed 017 fl 4 ed blood 09:52 platele t mean volume du Blood = 440 142-424 complet platele 017 K/mm3 ed t count 09:52 Red = 2.69 4.2-5.4 complet blood 017 M/mm3 ed cell 09:52 count Automat = 15.5 11.5-17 complet ed 017 % .5 ed erythro 09:52 cyte distrib ution width Blood = 6.4 4.8-10. complet leukocy 017 K/MM3 8 ed regan 09:52 count (number /volume ) Glucose capillary blood glucometer (10-09-2017 09:47) Glucose = 122 70-110 complet 017 mg/dl ed capilla 09:[address] Whole blood hemoglobin and hematocrit pa (09-27-2017 08:35) Blood = 8.4 12.2-16 complet hemoglo 017 g/dL .2 ed bin 08:35 measure ment (mass/v olum Blood = 26.7 37.0-47 complet hematoc 017 % .0 ed rit 08:35 (volume fractio n) Glucose capillary blood glucometer (09-26-2017 05:41) Glucose = 129 70-110 complet 017 mg/dl ed capilla 05:[address] Blood hematocrit (volume fraction) (09-26-2017 02:55) Comment: COMMENTS TO MAINTENANCE REPAIRER: 1 HR POST HH AT 0250 Blood = 28.3 37.0-47 complet hematoc 017 % .0 ed rit 02:55 (volume fractio n) Blood hemoglobin measurement (mass/volum (09-26-2017 02:55) Comment: COMMENTS TO MAINTENANCE REPAIRER: 1 HR POST HH AT 0250 Blood = 8.9 12.2-16 complet hemoglo 017 g/dL .2 ed bin 02:55 measure ment (mass/v olum Leukocyte reduction of packed red blood (09-26-2017 00:10) Leukocy BLOOD complet te 017 UNIT ed reducti 00:10 RELEASE on of BLOOD packed UNIT red RELEASE blood L Comment: BLOOD UNIT # : [id number] O POS Comment: RELEASED 09/26/17 Lou Romero Blood product special preparation [Type] (09-26-2017 00:10) Blood BLOOD complet product 017 UNIT ed 00:10 RELEASE special prepara tion [Type] Leukocyte reduction of packed red blood (09-25-2017 22:00) Leukocy BLOOD complet te 017 UNIT ed reducti 22:00 RELEASE on of BLOOD packed UNIT red RELEASE blood L Comment: Comment: BLOOD UNIT # : [id number] O POS Comment: RELEASED 09/25/17 Lou Romero Blood product special preparation [Type] (09-25-2017 22:00) Blood BLOOD complet product 017 UNIT ed 22:00 RELEASE special prepara tion [Type] Crossmatch (09-25-2017 10:00) Comment: Hold? N Comment: Transfuse now? 2 UNITS NOW Immedia COMPAT complet te spin 017 COMPAT ed 10:00 L crossma tch Interpr COMPAT complet etation 017 COMPAT ed of 10:00 L major crossma tch resul Blood type and crossmatch (09-25-2017 10:00) Comment: Hold? N Comment: Transfuse now? 2 UNITS NOW Blood O O L complet ABO 017 ed group 10:00 typing Rh POSITIV complet blood 017 E ed group 10:00 POSITIV typing E L Materna POSITIV NEGATIV complet l 017 E E ed antibod 10:00 POSITIV y E L screen Comment: SENT TO [facility] FOR Ag NEG UNITS. Blood type & Crossmatch panel in Blood (09-25-2017 10:00) Blood POSITIV NEGATIV Abnorma complet group 017 E E l ed antibod 10:00 y screen [Presen ce] in Serum or Plasma Rh POSITIV complet [Type] 017 E ed in 10:00 Blood ABO O complet group 017 ed [Type] 10:00 in Blood Blood type & Crossmatch panel in Blood (09-25-2017 10:00) Major COMPAT complet crossma 017 ed tch 10:00 [interp retatio n] Major COMPAT complet crossma 017 ed tch 10:00 [interp retatio n] by Immedia te spin Basic metabolic panel (09-25-2017 08:10) Comment: COMMENTS TO MAINTENANCE REPAIRER: PT IN [place] 4 Serum = 136 136-145 complet sodium 017 mmoL/L ed measure 08:10 ment Serum = 4.4 3.5-5.1 complet potassi 017 mmoL/L ed um 08:10 measure ment Serum = 136 74-106 complet or 017 mg/dL ed plasma 08:10 glucose measure ment (mas Estimat = 40 59- complet ed 017 ML/MIN ed glomeru 08:10 lar filtrat ion rate (GF Comment: REFERENCE RANGE: >60 ML/MIN/1.73 SQUARE METERS Comment: If this patient is -Citizen Of [place], then multiply the Comment: result by 1.210. Estimat = 38 50-200 complet ion of 017 ML/MIN ed creatin 08:10 ine renal clearan ce Serum = 1.3 0.55-1. complet or 017 mg/dL 02 ed plasma 08:10 creatin ine measure ment ( Carbon = 22 21.0-32 complet dioxide 017 mmoL/L .0 ed 08:10 measure ment Serum = 104 98-107 complet or 017 mmoL/L ed plasma 08:10 chlorid e measure ment (mo Serum = 8.0 8.5-10. complet or 017 mg/dL 1 ed plasma 08:10 calcium measure ment (mas Serum = 22 7-18 complet or 017 mg/dL ed plasma 08:10 urea nitroge n measure men CBC w auto diff (09-25-2017 08:10) Comment: COMMENTS TO MAINTENANCE REPAIRER: PT IN [place] 4 Red = 2.35 4.2-5.4 complet blood 017 M/mm3 ed cell 08:10 count Blood = 6.5 4.8-10. complet leukocy 017 K/MM3 8 ed regan 08:10 count (number /volume ) Automat = 15.4 11.5-17 complet ed 017 % .5 ed erythro 08:10 cyte distrib ution width Blood = 305 142-424 complet platele 017 K/mm3 ed t count 08:10 Automat = 8.4 7.4-10. complet ed 017 fl 4 ed blood 08:10 platele t mean volume du Todd % = 6.9 % 1.7-9.3 complet 017 ed 08:10 Absolut = 0.5 0.1-1.0 complet e 017 K/mm3 ed monocyt 08:10 e count Automat = 89.6 82.2-97 complet ed 017 fl .8 ed erythro 08:10 cyte mean corpusc ular v Automat = 29.7 31.8-35 complet ed 017 g/dl .4 ed erythro 08:10 cyte mean corpusc ular h Mean = 26.6 27-31.2 complet corpusc 017 pg ed ular 08:10 hemoglo bin (MCH) determ Automat = 0.7 % 0.1-12. complet ed 017 0 ed blood 08:10 eosinop hils/10 0 leukocy t Automat = 0.0 0.0-0.4 complet ed 017 K/mm3 ed blood 08:10 eosinop hil count Baso % = 0.5 % 0.1-2.0 complet 017 ed 08:10 Automat = 0.0 0-0.2 complet ed 017 K/MM3 ed blood 08:10 basophi l count (count/ vo Lymphoc = 33.0 10-50.0 complet yte 017 % ed count, 08:10 blood, automat ed Absolut = 2.2 0.7-4.5 complet e 017 K/mm3 ed lymphoc 08:10 yte count Blood = 6.2 12.2-16 complet hemoglo 017 g/dL .2 ed bin 08:10 measure ment (mass/v olum Comment: CRITICAL RESULTS Comment: RESULTS CALLED TO: VALENTIN.ALS 09/25/17819 Rodrigo Schulz Comment: Jazlyn Blood = 21.0 37.0-47 complet hematoc 017 % .0 ed rit 08:10 (volume fractio n) Comment: CRITICAL RESULTS Comment: RESULTS CALLED TO: VALENTIN.ALS 09/25/17819 Rodrigo Schulz Comment: Jazlyn Granulo 11-06-2 = 58.8 37.0-80 complet cyte 017 % .0 ed percent 08:10 age Blood 2 = 3.8 1.8-7.8 complet granulo 017 K/mm3 ed cytes 08:10 automat ed count (numb Glucose capillary blood glucometer (09-25-2017 07:28) Glucose = 155 70-110 complet 017 mg/dl ed capilla 07:[address]
--- OUTSIDE RECORDS SUMMARY | 2017-10-09 11:41 | External Medical Summary Rpt | CCD ---
Author Author , TRACIE HODGES Address Unknown Phone [email or web address] Immunization Name Date Rout CVX Reac Dose [...]
--- OUTSIDE RECORDS SUMMARY | 2017-10-09 11:41 | External Medical Summary Rpt | CCD ---
Author Author , TRACIE Organization TRACIE Address Unknown Phone [email or web address] Purpose Continuity of Care Document - 09-25-2017 through 2016 Problems Code Diagnosis DOS Provider Status E78.5 Hyperlipide yuan, unspecified I10 Essential (primary) hypertensio n I25.10 Atheroscler otic heart disease of [place] coronary artery without angina pectoris I73.9 Peripheral vascular disease, unspecified K92.1 Melena R10.84 Generalized abdominal pain R10.9 Unspecified abdominal pain R19.5 Other fecal abnormaliti es Z79.84 correction (current) use of oral hypoglycemi c drugs Z79.899 Other [facility] ([facility]) drug therapy Z87.891 Personal history of nicotine dependence Z88.0 Allergy status to penicillin Z88.2 Allergy status to sulfonamide s status Z90.49 Acquired absence of other specified parts of digestive tract Results Labs Lab Lab Date Result Refere Interp Status Commen Order Detail nces retati t Range on CBC w auto diff (10-09-2017 09:52) Comment: COMMENTS TO TRUCK CLEANER: GOTTEN WITH IV Automat = 0.1 0-0.2 [...] 017 K/mm3 ed monocyt 09:52 e count Trigg % = 6.9 % 1.7-9.3 complet 017 [...] (volume fraction) (09-26-2017 02:55) Comment: COMMENTS TO TRUCK CLEANER: 1 HR POST HH AT 0250 Blood = 28.3 37.0-47 complet hematoc 017 % .0 ed rit 02:55 (volume fractio n) Blood hemoglobin measurement (mass/volum (09-26-2017 02:55) Comment: COMMENTS TO TRUCK CLEANER: 1 HR POST HH AT 0250 Blood = 8.9 12.2-16 complet hemoglo 017 g/dL .2 ed bin 02:55 measure ment (mass/v olum Leukocyte reduction of packed red blood (09-26-2017 00:10) Leukocy BLOOD complet te 017 UNIT ed reducti 00:10 RELEASE on of BLOOD packed UNIT red RELEASE blood L Comment: BLOOD UNIT # : [id number] O POS Comment: RELEASED 09/26/17 Lou Romero Blood product special preparation [Type] (09-26-2017 00:10) Blood BLOOD complet product 017 UNIT ed 00:10 RELEASE special prepara tion [Type] Leukocyte reduction of packed red blood (09-25-2017 22:00) Leukocy BLOOD complet te 017 UNIT ed reducti 22:00 RELEASE on of BLOOD packed UNIT red RELEASE blood L Comment: Comment: BLOOD UNIT # : [id number] O POS Comment: RELEASED 09/25/17 Lou Romero [...] y E L screen Comment: SENT TO [facility] FOR Ag NEG UNITS. Blood type & [...] metabolic panel (09-25-2017 08:10) Comment: COMMENTS TO TRUCK CLEANER: PT IN [place] 4 Serum = 136 [...] SQUARE METERS Comment: If this patient is -[place], then multiply the Comment: result by 1.210. [...] auto diff (09-25-2017 08:10) Comment: COMMENTS TO TRUCK CLEANER: PT IN [place] 4 Red = 2.35 [...] blood 08:10 platele t mean volume du Trigg % = 6.9 % 1.7-9.3 complet 017 [...]
--- OUTSIDE RECORDS SUMMARY | 2017-10-09 11:41 | External Medical Summary Rpt | CCD ---
Author Author , TRACIE HODGES Address Unknown Phone [email or web address] Immunization Name Date Rout CVX Reac Dose [...]
--- OUTSIDE RECORDS SUMMARY | 2017-10-09 11:42 | External Medical Summary Rpt ---
Author Author TRACIE Tatiana, [employer] Organization [employer] Address Unknown Phone Unavailable Results CBC W Auto Differential panel in Blood Observa Value Referen Units Interpr Notes Date tion ce etation Range COMMENTS TO ROUGE MILLER: GOTTEN WITH IV Basophils 0 - 0.2 K/MM3 Normal No Oct 09 informati 2016 9:52 [#/volume on in AM ] in source Blood by data Automated count Basophils 0.1 - 2.0 % Normal No Oct 09 informati 2016 9:52 leukocyte on in AM s in source Blood by data Automated count Eosinophi 0.0 - 0.4 K/mm3 Normal No Oct 09 ls informati 2016 9:52 [#/volume on in AM ] in source Blood by data Automated count Eosinophi 0.1 - % Normal No Oct 09 ls/100 12.0 informati 2016 9:52 leukocyte on in AM s in source Blood by data Automated count Granulocy 1.8 - 7.8 K/mm3 Normal No Oct 09 regan informati 2016 9:52 [#/volume on in AM ] in source Blood by data Automated count Granulocy 37.0 - % Normal No Oct 09 regan/100 80.0 informati 2016 9:52 leukocyte on in AM s in source Blood by data Automated count Hematocri 37.0 - % Low No Oct 09 t [Volume 47.0 informati 2016 9:52 on in AM Fraction] source of Blood data Hemoglobi 12.2 - g/dL Low alert Oct 09 n 16.2 2016 9:52 [Mass/vol CRITICAL AM ume] in RESULTS Blood RESU LTS CALLED TO: REBR 10/09/17 1003 Stephanie Caldwell Lymphocyt 0.7 - 4.5 K/mm3 Normal No Oct 09 es informati 2016 9:52 [#/volume on in AM ] in source Unspecifi data ed specimen by Automated count Lymphocyt 10 - 50.0 % Normal No Oct 09 es informati 2016 9:52 [#/volume on in AM ] in source Unspecifi data ed specimen by Automated count Erythrocy 27 - 31.2 pg Low No Oct 09 te mean informati 2016 9:52 corpuscul on in AM ar source hemoglobi data n [Entitic mass] Erythrocy 31.8 - g/dl Low No Oct 09 te mean 35.4 informati 2016 9:52 corpuscul on in AM ar source hemoglobi data n concentra tion [Mass/vol ume] by Automated count Erythrocy 82.2 - fl Normal No Oct 09 te mean 97.8 informati 2016 9:52 corpuscul on in AM ar volume source [Entitic data volume] by Automated count Monocytes 0.1 - 1.0 K/mm3 Normal No Oct 09 informati 2016 9:52 [#/volume on in AM ] in source Blood by data Automated count Monocytes 1.7 - 9.3 % Normal No Oct 09 /100 informati 2016 9:52 leukocyte on in AM s in source Blood by data Automated count Platelet 7.4 - fl Normal Oct 09 mean 10.4 informati 2016 9:52 volume on in AM [Entitic source volume] data in Blood by Automated count Platelets 142 - 424 K/mm3 High No Oct 09 informati 2016 9:52 [#/volume on in AM ] in source Blood data Erythrocy 4.2 - 5.4 M/mm3 Low No Oct 09 regan informati 2016 9:52 [#/volume on in AM ] in source Amniotic data fluid Erythrocy 11.5 - % Normal No Oct 09 te 17.5 informati 2016 9:52 distribut on in AM ion width source [Entitic data volume] by Automated count Leukocyte 4.8 - K/MM3 Normal No Oct 09 s 10.8 informati 2016 9:52 [#/volume on in AM ] in source Blood data Glucose [Mass/volume] in Capillary blood by Glucometer Observa Value Referen Units Interpr Notes Date tion ce etation Range Glucose 70 - 110 mg/dl High No Oct 09 [Mass/vol informati 2016 9:47 ume] in on in AM Capillary source blood by data Glucomete r Hemoglobin & Hematocrit panel in Blood Observa Value Referen Units Interpr Notes Date tion ce etation Range Hematocri 37.0 - % Low No Sep 8 t [Volume 47.0 informati 2017 8:35 on in AM Fraction] source of Blood data Hemoglobi 12.2 - g/dL Low No Sep 8 n 16.2 informati 2016 8:35 [Mass/vol on in AM ume] in source Blood data Glucose [Mass/volume] in Capillary blood by Glucometer Observa Value Referen Units Interpr Notes Date tion ce etation Range Glucose 70 - 110 mg/dl High No Sep 7 [Mass/vol informati 2016 5:41 ume] in on in AM Capillary source blood by data Glucomete r Hematocrit [Volume Fraction] of Blood Observa Value Referen Units Interpr Notes Date tion ce etation Range COMMENTS TO ROUGE MILLER: 1 HR POST HH AT 0250 Hematocri 37.0 - % Low No Sep 7 t [Volume 47.0 informati 2017 2:55 on in AM Fraction] source of Blood data Hemoglobin [Mass/volume] in Blood Observa Value Referen Units Interpr Notes Date tion ce etation Range COMMENTS TO ROUGE MILLER: 1 HR POST HH AT 0250 Hemoglobi 12.2 - g/dL Low No Sep 7 n 16.2 informati 2017 2:55 [Mass/vol on in AM ume] in source Blood data Blood product special preparation [Type] Observa Value Referen Units Interpr Notes Date tion ce etation Range Blood BLOOD No No No BLOOD Sep 7 product UNIT informa informa informa UNIT # 2017 RELEASE tion in in in : [id number] 12:10 special source source source 17 AM data data data [id number] prepara O tion POSRELE [Type] ASED 7 Titus Romero Blood product special preparation [Type] Observa Value Referen Units Interpr Notes Date tion ce etation Range Blood BLOOD No No No BLOOD Sep 6 product UNIT informa informa informa UNIT # 2017 RELEASE tion in in in : [id number] 10:00 special source source source 17 PM data data data [id number] prepara O tion POSRELE [Type] ASED 7 Titus Romero Blood type & Crossmatch panel in Blood Observa Value Referen Units Interpr Notes Date tion ce etation Range Hold? N Transfuse now? 2 UNITS NOW Major COMPAT No No No No Sep 6 crossma informa informa informa informa 2017 tch tion in tion in tion in tion in 10:00 [interp source source source source AM retatio data data data data n] Major COMPAT No No No No Sep 6 crossma informa informa informa informa 2017 tch tion in tion in tion in tion in 10:00 [interp source source source source AM retatio data data data data n] by Immedia te spin Blood type & Crossmatch panel in Blood Observa Value Referen Units Interpr Notes Date tion ce etation Range Hold? N Transfuse now? 2 UNITS NOW Blood POSITIV NEGATIV No Abnorma SENT TO Sep 25 group E E informa l [facility] 2017 antibod tion in FOR Ag 10:00 y source NEG AM screen data UNITS. [Presen ce] in Serum or Plasma Rh POSITIV No No No No Sep 6 [Type] E informa informa informa informa 2017 in tion in tion in tion in tion in 10:00 Blood source source source source AM data data data data ABO O No No No No Sep 6 group informa informa informa informa 2017 [Type] tion in tion in tion in tion in 10:00 in source source source source AM Blood data data data data Blood type & Crossmatch panel in Blood Observa Value Referen Units Interpr Notes Date tion ce etation Range Hold? N Transfuse now? 2 UNITS NOW Major COMPAT No No No No Sep 6 crossma informa informa informa informa 2017 tch tion in tion in tion in tion in 10:00 [interp source source source source AM retatio data data data data n] Major COMPAT No No No No Sep 6 crossma informa informa informa informa 2017 tch tion in tion in tion in tion in 10:00 [interp source source source source AM retatio data data data data n] by Immedia te spin Basic metabolic panel in Blood Observa Value Referen Units Interpr Notes Date tion ce etation Range COMMENTS TO ROUGE MILLER: PT IN [place] 4 Urea 7 - 18 mg/dL High No Sep 25 nitrogen informati 2017 8:10 [Mass/vol on in AM ume] in source Serum or data Plasma Calcium 8.5 - mg/dL Low No Sep 6 [Mass/vol 10.1 informati 2016 8:10 ume] in on in AM Serum or source Plasma data Chloride 98 - 107 mmoL/L Normal No Sep 6 [Moles/vo informati 2016 8:10 lume] in on in AM Serum or source Plasma data Carbon 21.0 - mmoL/L Normal No Sep 25 dioxide, 32.0 informati 2016 8:10 total on in AM [Moles/vo source lume] in data Serum or Plasma Creatinin 0.55 - mg/dL High No Sep 6 e 1.02 informati 2016 8:10 [Mass/vol on in AM ume] in source Serum or data Plasma Creatinin 50 - 200 ML/MIN Low No Sep 6 e renal informati 2016 8:10 clearance on in AM source predicted data by Cockcroft -Gault formula Estimated 59- ML/MIN Low REFERENCE Sep 6 RANGE: 2016 8:10 glomerula >60 AM r ML/MIN/1. filtratio 73 SQUARE n rate METERSIf (GF this patient is -A merican, then multiply theresult by 1.210. Glucose 74 - 106 mg/dL High No Sep 25 [Mass/vol informati 2016 8:10 ume] in on in AM Serum or source Plasma data Potassium 3.5 - 5.1 mmoL/L Normal No Sep 25 informati 2016 8:10 [Moles/vo on in AM lume] in source Serum or data Plasma Sodium 136 - 145 mmoL/L Normal No Sep 25 [Moles/vo informati 2016 8:10 lume] in on in AM Serum or source Plasma data CBC W Auto Differential panel in Blood Observa Value Referen Units Interpr Notes Date tion ce etation Range COMMENTS TO ROUGE MILLER: PT IN [place] 4 Basophils 0 - 0.2 K/MM3 Normal No Sep 6 informati 2016 8:10 [#/volume on in AM ] in source Blood by data Automated count Basophils 0.1 - 2.0 % Normal No Sep 6 /100 informati 2017 8:10 leukocyte on in AM s in source Blood by data Automated count Eosinophi 0.0 - 0.4 K/mm3 Normal No Sep 6 ls informati 2016 8:10 [#/volume on in AM ] in source Blood by data Automated count Eosinophi 0.1 - % Normal No Sep 6 ls/100 12.0 informati 2016 8:10 leukocyte on in AM s in source Blood by data Automated count Granulocy 1.8 - 7.8 K/mm3 Normal No Sep 6 regan informati 2016 8:10 [#/volume on in AM ] in source Blood by data Automated count Granulocy 37.0 - % Normal No Sep 6 regan/100 80.0 informati 2017 8:10 leukocyte on in AM s in source Blood by data Automated count Hematocri 37.0 - % Low alert Sep 6 t [Volume 47.0 2016 8:10 CRITICAL AM Fraction] RESULTS of Blood RESU LTS CALLED TO: VALENTIN.ALS 09/25/17 08Abner Mcclellan e Hemoglobi 12.2 - g/dL Low alert Sep 25 n 16.2 2016 8:10 [Mass/vol CRITICAL AM ume] in RESULTS Blood RESU LTS CALLED TO: VALENTIN.ALS 09/25/17 0820 Abner Schulz Lymphocyt 0.7 - 4.5 K/mm3 Normal No Sep 25 es informati 2016 8:10 [#/volume on in AM ] in source Unspecifi data ed specimen by Automated count Lymphocyt 10 - 50.0 % Normal No Sep 25 es informati 2016 8:10 [#/volume on in AM ] in source Unspecifi data ed specimen by Automated count Erythrocy 27 - 31.2 pg Low No Sep 6 te mean informati 2016 8:10 corpuscul on in AM ar source hemoglobi data n [Entitic mass] Erythrocy 31.8 - g/dl Low No Sep 25 te mean 35.4 informati 2016 8:10 corpuscul on in AM ar source hemoglobi data n concentra tion [Mass/vol ume] by Automated count Erythrocy 82.2 - fl Normal No Sep 25 te mean 97.8 informati 2016 8:10 corpuscul on in AM ar volume source [Entitic data volume] by Automated count Monocytes 0.1 - 1.0 K/mm3 Normal No Sep 6 informati 2016 8:10 [#/volume on in AM ] in source Blood by data Automated count Monocytes 1.7 - 9.3 % Normal No Sep 6 /100 informati 2016 8:10 leukocyte on in AM s in source Blood by data Automated count Platelet 7.4 - fl Normal No Sep 6 mean 10.4 informati 2016 8:10 volume on in AM [Entitic source volume] data in Blood by Automated count Platelets 142 - 424 K/mm3 No Sep 6 informati informati 2016 8:10 [#/volume on in on in AM ] in source source Blood data data Erythrocy 4.2 - 5.4 M/mm3 Low No Sep 6 regan informati 2016 8:10 [#/volume on in AM ] in source Amniotic data fluid Erythrocy 11.5 - % Normal No Sep 25 te 17.5 informati 2016 8:10 distribut on in AM ion width source [Entitic data volume] by Automated count Leukocyte 4.8 - K/MM3 Normal No Sep 6 s 10.8 informati 2016 8:10 [#/volume on in AM ] in source Blood data Glucose [Mass/volume] in Capillary blood by Glucometer Observa Value Referen Units Interpr Notes Date tion ce etation Range Glucose 70 - 110 mg/dl High No Sep 25 [Mass/vol informati 2016 7:28 ume] in on in AM Capillary source blood by data Glucomete r
--- OUTSIDE RECORDS SUMMARY | 2017-10-09 11:42 | External Medical Summary Rpt ---
Author Author TRACIE Tatiana, [employer] Organization [employer] Address Unknown Phone Unavailable Results CBC W Auto Differential panel in Blood Observa Value Referen Units Interpr Notes Date tion ce etation Range COMMENTS TO GROUND EQUIPMENT MECHANIC: GOTTEN WITH IV Basophils 0 - 0.2 [...] 37.0 - % Normal No Oct 09 ergan/100 80.0 informati 2016 9:52 leukocyte on in [...] Date tion ce etation Range COMMENTS TO GROUND EQUIPMENT MECHANIC: 1 HR POST HH AT 0250 Hematocri 37.0 - % Low No Sep 7 t [Volume 47.0 informati 2017 2:55 on in AM Fraction] source of Blood data Hemoglobin [Mass/volume] in Blood Observa Value Referen Units Interpr Notes Date tion ce etation Range COMMENTS TO GROUND EQUIPMENT MECHANIC: 1 HR POST HH AT 0250 Hemoglobi [...] source source 17 AM data data data [id number] prepara O tion POSRELE [Type] ASED 7 Titus Romero Blood product special preparation [Type] Observa Value Referen Units Interpr Notes Date tion ce etation Range Blood BLOOD No No No BLOOD Sep 6 product UNIT informa informa informa UNIT # 2017 RELEASE tion in in in : [id number] 10:00 special source source source 17 PM data data data [id number] prepara O tion POSRELE [Type] ASED 7 [...] Sep 25 group E E informa l [facility] 2017 antibod tion in FOR Ag 10:00 [...] Date tion ce etation Range COMMENTS TO GROUND EQUIPMENT MECHANIC: PT IN [place]AY 4 Urea 7 - [...] Date tion ce etation Range COMMENTS TO GROUND EQUIPMENT MECHANIC: PT IN BAY 4 Basophils 0 - [...]
[2017-10-09] MEDS ORDERED: CYCLOBENZ5 MG PO (12:32)
[2017-10-09] MEDS ORDERED: ADULT LOW DOSE81 MG PO (12:33)
[2017-10-09] MEDS ORDERED: CILOSTAZOL100 MG PO (12:34)
--- NOTE | 2017-10-09 14:56 | HISTORY AND PHYSICAL REPORT ---
History and Physical ([facility]) Date of admission: 10/09/17 Chief complaint: anemic History: History of Present Illness: Mrs. Daily is a 77-year-old female with melanotic stools and gastrointestinal blood loss. 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 She also received blood transfusion at that time. She returned today with symptomatic anemia. She had stopped her Plavix. She had weakness. dizziness and dyspnea. She continued to have melanotic stools. She had a normal colonoscopy with Dr. Bryan Aburto one year ago. She had a colonoscopy showing 2 small polyps of the descending colon in February 2013 (tubular adenomas 2). The patient reported no abdominal pain. She noted chronic constipation. She had a colonoscopy with Dr. Cortés this AM 10/09/17 which showed: 1. Extensive left-sided diverticulosis 2. Grade 1 internal hemorrhoid He noted that there was no clear source for the patient's anemia or melanotic stools and felt that this was certainly in part related to the watermelon stomach/ GAVE. Her hemoglobin/hematocrit dropped further even after APC ablation. He plans video capsule enteroscopy to evaluate further. With her symptomatic H&H she was admitted to [facility] for blood administration and observation. At the time of this exam her only complaint is of being cold. She denies CP and SOB. Past Medical History: Medical History: CAD? Yes Angina: No OH: No Hypertension? Yes Hyperlipidemia? Yes CHF? No DVT? No PE? No COPD? Yes Asthma? No Anemia? Yes GERD? Yes Gastric ulcers? No GI Bleed? Yes Hernia? No Thyroid Problems? Yes Hypothyroidism? Yes CVA? No Seizures? No Diabetes? Yes Insulin Dependent: Yes Insulin Pump: No Home FSBS? No Renal Insuffiency? No UTI? No Stones? No BPH? No GB Disease: No Nephritic Syndrome? No Asplenia? No Hepatitis? No Sickle Cell Disease? No Arthritis? No Migraines? No Cataracts? No Glaucoma? No MRSA? No HIV? No TB? No Anxiety? No Depression? No Cancer? No More? No Additional hx: GAVE Surgical history: Previous Surgery?Y RT KNEE REPLACEMENT GALLBLADDER BLADDER SURGERY HYSTERECTOMY THYROIDECTOMY BILAT CARPAL TUNNEL LT ROTATOR CUFF REPAIR RT BREAST BIOPSY( BENIGN) CARDIAC STENTS 2004 KIDNEY STENTS BILAT FEMORAL STENTS LT ARM STENT 2007 BILAT CAROTID ENDARTEREC- ADELFO BILAT CATARACT REMOVAL Medications: Active Scripts Famotidine 20 MG PO BID #60 TAB Prov: 09/27/17 Reported Medications Pravastatin Sodium (Pravachol) 40 MG PO QHS #30 Levothyroxine Sodium 0.125 MG PO DAILY #30 Lisinopril (Lisinopril 40MG) 40 MG PO DAILY #30 INSULIN NPH HUM/REG INSULIN HM (Novolin 70-30 100 Unit/Ml Vial) 20 UNITS SC QAM INSULIN NPH HUM/REG INSULIN HM (Novolin 70-30 100 Unit/Ml Vial) 10 UNITS SC QPM METFORMIN HCL (Glucophage) 500 MG PO BID HYDROCHLOROTHIAZIDE (Hydrochlorothiazide) 25 MG PO DAILY Hydralazine Hcl (Apresoline 50MG Tab) 50 MG OR BID Metoprolol Tartrate (Metoprolol 100MG) 100 MG PO BID ISOSORBIDE MONONITRATE (Isosorbide Mononitrate ER) 60 MG PO DAILY Tiro-3S/Dha/Epa/Fish Oil (Fish Oil Tiro-3 Softgel) 1 EACH PO DAILY Cyclobenzaprine Hcl (Cyclobenzaprine) 5 MG PO BID Aspirin (Adult Low Dose Aspirin EC) 81 MG PO DAILY CILOSTAZOL (Cilostazol) 50 MG PO DAILY GABAPENTIN (Gabapentin 100MG Capsule) 100 MG PO BID #60 MULTIVITAMIN (One Daily Multivitamin) 1 TAB PO DAILY Allergies: Coded Allergies: Penicillins (LIPS SWELLING, VANGINA TURNS OUT 09/20/17) Family History: Family history: Postive for: CAD, DM. Social History: Smoking Hx Tobacco: Yes Smoker: Former Smoker Type: N/A Packs/day: N/A Are you exposed to second hand No Alcohol: Alcohol: No Hx of Drug Use: Drug Use? No Review of Systems: Constitutional Positive for: weak. ENT No: nasal congestion, sinus problems, sore throat. Cardiovascular No: chest pain, edema, palpitations. Respiratory No: shortness of air, hemoptysis, non-productive. GI Positive for: diarrhea, melena. No: GERD, abdominal pain, constipation, hematemeis, hematochezia, nausea, vomitting. (female) No: frequency, hematuria. Neurological Positive for: dizziness, light headed. No: confusion, headache, seizure, syncope. Musculoskeletal Positive for: extremity pain (leg pain). Physical Exam: Vital signs: 1ST Vital Signs Result Date Time Pulse Ox 100 10/09 955 B/P 92/48 10/09 955 Temp 98.0 10/09 955 Pulse 66 10/09 955 Resp 18 10/09 955 O2 Delivery ROOM AIR 10/09 1121 Exam: General appearance: alert, no acute distress, awakened for exam Eyes: anicteric, pupils reactive to light, pale conjunctivae ENT: mucous membranes moist, pharynx normal Neck: full range of motion, lymphadenopathy (absent), thyroid (normal), carotid bruits > on the left versus radiating murmur Cardiovascular: regular rate & rhythm, premature beat every 4th beat; murmur Respiratory: clear to auscultation (bilat anterior and posterior) ABD: non-distended, soft, no tenderness, no guarding, bowel sounds present Extremities: no peripheral edema, warm, no calf tenderness Skin: dry, warm, pale Neuro: alert, oriented, speech clear Lab data: Labs: Laboratory Tests 10/09/17 1405: POC Glucose 151 H 10/09/17 1032: Antibody Screen POSITIVE H, Miscellaneous Test POSITIVE 10/09/17 0952: WBC 6.4, RBC 2.69 L, Hgb 7.1 *L, Hct 24.1 L, MCV 89.4, RDW 15.5, Plt Count 440 H, MPV 7.4, Gran % 65.8, Gran # 4.2, Lymphocytes % 26.2, Monocytes % 6.9, Eosinophils % 0.4, Basophils % 0.7, Lymphocytes # 1.7, Monocytes # 0.4, Eosinophils # 0.0, Basophils # 0.1, PUBS MCHC 29.4 L, MCH 26.3 L 10/09/17 0947: POC Glucose 122 H Diagnosis(es): 1. Anemia 2. GI bleed 3. GAVE (gastric antral vascular ectasia) 4. CAD (coronary artery disease) Status: Chronic 5. Diabetes mellitus Status: Chronic Plan: as per orders; will restart some of home meds; will administer blood when ready (Linda Vega APRN) Diagnosis(es): 1. Anemia 2. GI bleed 3. GAVE (gastric antral vascular ectasia) 4. CAD (coronary artery disease) Status: Chronic 5. Diabetes mellitus Status: Chronic Plan: Patient seen and agree with above note. (Lynda PIZANO,Juan) at 1455 at 1927
[2017-10-09 21:44] LABS: ANTIHUMAN GLOB CROSSMATCH COMPAT
[2017-10-10] VITALS (23 sets, daily range): BP systolic 119–179; BP diastolic 33–80
[2017-10-10 04:12] LABS: HEMOGLOBIN 8.4 g/dL (12.2-16.2)
--- NOTE | 2017-10-10 07:24 | PHARMACY CLINIC NOTE ---
Patient Demographics Patient Demographics Admission date: 10/09/17 Date: 10/10/17 Time: 0723 Allergies Coded Allergies: Penicillins (LIPS SWELLING, VANGINA TURNS OUT 09/20/17) HEIGHT- FT: 5 IN: 3.00 K.225 VTE General Information Labs: Laboratory Tests 10/10 10/09 0355 0952 Hematology Hgb (12.2 - 16.2 g/dL) 8.4 L 7.1 *L Hct (37.0 - 47.0 %) 27.0 L 24.1 L Plt Count (142 - 424 K/mm3) 440 H Disclaimer The following section includes nursing documentation that has been pulled in for pharmacy review. Patient's VTE score: 2 Patient's VTE Risk: VERY LOW RISK VTE prophylaxis [id number] VTE prophylaxis ordered? Yes Type of prophylaxis/treatment: IVETTE at 0723
--- NOTE | 2017-10-10 08:25 | ACUTE CARE PROGRESS NOTE (QUA) ---
See Addendum Progress Notes Subjective Date 10/10/17 Time 0821 Note Better this AM; received 2 units PRBC and completed at 0300; slept after this; eating well without problems. normal stool this AM. Denies CP and SOB; ambulated to the bathroom without problems-no dizziness. Objective Findings Laboratory Tests 10/10/17 0606: POC Glucose 152 H 10/10/17 0355: Hgb 8.4 L, Hct 27.0 L 10/10/17 0020: Misc Test Units BLOOD UNIT RELEASE 10/09/17 2216: Misc Test Units BLOOD UNIT RELEASE 10/09/17 1946: POC Glucose 164 H 10/09/17 1709: POC Glucose 152 H 10/09/17 1405: POC Glucose 151 H 10/09/17 1032: Antibody Screen POSITIVE H, Miscellaneous Test POSITIVE 10/09/17 0952: WBC 6.4, RBC 2.69 L, Hgb 7.1 *L, Hct 24.1 L, MCV 89.4, RDW 15.5, Plt Count 440 H, MPV 7.4, Gran % 65.8, Gran # 4.2, Lymphocytes % 26.2, Monocytes % 6.9, Eosinophils % 0.4, Basophils % 0.7, Lymphocytes # 1.7, Monocytes # 0.4, Eosinophils # 0.0, Basophils # 0.1, PUBS MCHC 29.4 L, MCH 26.3 L 10/09/17 0947: POC Glucose 122 H Vital Signs Date Time Temp Pulse Resp B/P Pulse O2 O2 Flow FiO2 Ox Delivery Rate 10/10 0340 98.0 70 16 138/50 10/10 0240 98.1 69 18 135/50 10/10 0230 97.7 79 18 138/50 10/10 0130 97.8 76 18 136/48 10/10 0115 97.7 80 18 138/49 10/10 0100 97.6 80 18 130/48 10/10 0045 97.8 72 16 122/40 10/10 0040 72 18 130/34 10/10 0035 97.8 70 18 128/34 10/10 0030 97.7 74 18 119/33 10/10 0005 98.1 73 16 140/49 10/09 2350 98.1 72 16 141/50 10/09 2250 98.1 75 16 145/43 10/09 2235 98.0 76 16 143/39 10/09 2220 98.0 79 16 137/40 10/09 2205 98.0 74 16 135/34 10/09 2155 98.1 75 18 130/37 10/09 2150 97.9 78 18 111/30 10/09 2145 98.2 76 18 109/40 10/09 1957 98.1 84 18 113/48 96 ROOM AIR 10/09 1934 98.3 79 18 117/30 98 10/09 1550 98.3 79 18 117/30 98 10/09 1450 98.7 76 18 121/34 98 10/09 1350 97.5 78 18 134/41 100 10/09 1324 97.4 69 18 150/46 97 ROOM AIR 10/09 1320 97.8 76 20 136/50 98 10/09 1250 98.1 81 18 137/54 99 10/09 1235 98.4 74 18 155/50 93 10/09 1220 98.0 75 18 150/46 98 10/09 1205 97.9 68 18 146/54 96 10/09 1200 68 18 100/41 10/09 1157 72 16 85/46 10/09 1150 97.4 69 18 129/36 100 10/09 1121 98.0 69 16 98/44 100 ROOM AIR 10/09 1107 98 10/09 0957 98.0 66 18 92/48 10/09 0955 98.0 66 18 92/48 100 Current Medications Isosorbide Mononitrate 60 MG DAILY PO Levothyroxine Sodium 0.125 MG DAILY PO Sodium Chloride 250 ML .STK-MED ONE IV (DC) Famotidine 20 MG BID PO Metoprolol Tartrate 100 MG BID PO Sodium Chloride 250 ML .STK-MED ONE IV (DC) Acetaminophen 0 .STK-MED ONE PO (DC) Acetaminophen 650 MG Q4HP PRN PO Influenza Virus Vaccine Quadrival 0.5 ML PRN PRN IM Nicotine 21 MG DAILYP PRN TD Sodium Chloride 250 ML .Q10H IV (DC) Lactated Ringer's 1,000 ML .Q25H ONE IV 10/09 1500 10/09 2300 10/10 0700 Intake Total 240 360 640 Output Total Balance 240 360 640 Intake, IV 640 Intake, Oral 240 360 Patient 146 lb Weight Last VS-Temp:98 B/P:138/50 Pulse:70 Resp:16 SaO2:96 ROOM AIR Last weight lbs:146 oz:0 K.225 Method:Bed Scales Exam General appearance: alert, no acute distress Cardiovascular: regular rate & rhythm, murmur Respiratory: clear to auscultation (bilat anterior and posterior) ABD: non-distended, normal bowel sounds, soft, no tenderness, no guarding Extremities: full range of motion, no peripheral edema, no calf tenderness, TEDS on Assessment/Plan Problem List 1. Anemia 2. GI bleed 3. GAVE (gastric antral vascular ectasia) 4. CAD (coronary artery disease) Status: Chronic 5. Diabetes mellitus Status: Chronic Patient condition improved Plan: to receive 1 unit PRBC and then will be discharged to home if OK This inpt stay is expected to cross 2 MNs from start of care No (Linda Vega APRN) Assessment/Plan Problem List 1. Anemia 2. GI bleed 3. GAVE (gastric antral vascular ectasia) 4. CAD (coronary artery disease) Status: Chronic 5. Diabetes mellitus Status: Chronic Comments: Patient seen and agree with above note. (Juan Howell MD) at 0854 at 0919
[2017-10-10] MEDS ORDERED: METOPROLOL SUC100 M2 PO (10:27)
[2017-10-10] MEDS ORDERED: LEVOTHYROXIN0.112 M1 PO (10:28)
[2017-10-10 12:43] LABS: HEMOGLOBIN 10.4 g/dL (12.2-16.2)
--- NOTE | 2017-10-11 13:30 | DISCHARGE SUMMARY STANDARD ---
Discharge Summary ([facility]CA2) Date of admission: 10/09/17 Date of discharge: 10/10/17 Problem List: 1. Anemia 2. GI bleed 3. GAVE (gastric antral vascular ectasia) 4. CAD (coronary artery disease) 5. Diabetes mellitus History of present illness: Mrs. Daily is a 77-year-old female with melanotic stools and gastrointestinal blood loss. 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 She also received a blood transfusion at that time. She returned again with symptomatic anemia. She had stopped her Plavix. She had weakness, dizziness, and dyspnea. She continued to have melanotic stools. She had a normal colonoscopy with Dr. Bryan Aburto one year ago. She had a colonoscopy showing 2 small polyps of the descending colon in February 2013 ( tubular adenomas 2). The patient reported no abdominal pain. She noted chronic constipation. She had a colonoscopy with Dr. Cortés on the AM of 10/09/17 which showed: extensive left-sided diverticulosis and a grade 1 internal hemorrhoid. He noted that there was no clear source for the patient's anemia or melanotic stools and felt that this was certainly in part related to the watermelon stomach/ GAVE. Her hemoglobin/hematocrit dropped further even after APC ablation. He plans video capsule enteroscopy to evaluate further. With her symptomatic H&H she was admitted to [facility] for blood administration and observation. At the time of this exam her only complaint was of being cold. She denied CP and SOB. Exam on admission: General appearance: alert, no acute distress, awakened for exam Eyes: anicteric, pupils reactive to light, pale conjunctivae ENT: mucous membranes moist, pharynx normal Neck: full range of motion, lymphadenopathy (absent), thyroid (normal), carotid bruits > on the left versus radiating murmur Cardiovascular: regular rate & rhythm, premature beat every 4th beat; murmur Respiratory: clear to auscultation (bilat anterior and posterior) ABD: non-distended, soft, no tenderness, no guarding, bowel sounds present Extremities: no peripheral edema, warm, no calf tenderness Skin: dry, warm, pale Neuro: alert, oriented, speech clear Hospital Course: Her HGB was 7.1 and she was transfused with 3 units of PRBC's. Her HGB increased to 10.4. She felt much better and was stable to be discharged home. Discharge medications: Continue taking these medications: GABAPENTIN (Gabapentin 100MG Capsule) 100 MG CAPSULE 100 MILLIGRAM ORAL TWICE A DAY Qty = 60 Pravastatin Sodium (Pravachol) 40 MG TABLET 40 MILLIGRAM ORAL AT BEDTIME NIGHTLY Qty = 30 Lisinopril (Lisinopril 40MG) 40 MG TABLET 40 MILLIGRAM ORAL DAILY Qty = 30 MULTIVITAMIN (One Daily Multivitamin) 1 EACH TABLET 1 TABLET ORAL DAILY INSULIN NPH HUM/REG INSULIN HM (Novolin 70-30 100 Unit/Ml Vial) 100 UNIT/ML (70- 30) VIAL 20 UNITS Subcutaneous Injection EVERY MORNING INSULIN NPH HUM/REG INSULIN HM (Novolin 70-30 100 Unit/Ml Vial) 100 UNIT/ML (70- 30) VIAL 10 UNITS Subcutaneous Injection EVERY NIGHT METFORMIN HCL (Glucophage) 500 MG TABLET 500 MILLIGRAM ORAL TWICE A DAY HYDROCHLOROTHIAZIDE (Hydrochlorothiazide) 25 MG TABLET 25 MILLIGRAM ORAL DAILY Hydralazine Hcl (Apresoline 50MG Tab) 50 MG TABLET 50 MILLIGRAM BY MOUTH TWICE A DAY ISOSORBIDE MONONITRATE (Isosorbide Mononitrate ER) 60 MG TAB.ER.24H 60 MILLIGRAM ORAL DAILY [place]-3S/Dha/Epa/Fish Oil (Fish Oil [place]-3 Softgel) 1 EACH CAPSULE.DR 1 EACH ORAL DAILY Famotidine (Famotidine) 20 MG TABLET 20 MILLIGRAM ORAL TWICE A DAY Qty = 60 Cyclobenzaprine Hcl (Cyclobenzaprine) 5 MG TABLET 5 MILLIGRAM ORAL TWICE A DAY Aspirin (Adult Low Dose Aspirin EC) 81 MG TABLET.DR 81 MILLIGRAM ORAL DAILY CILOSTAZOL (Cilostazol) 100 MG TABLET 50 MILLIGRAM ORAL DAILY Metoprolol Succinate (Metoprolol Succinate XL) 100 MG TAB.ER.24H 100 MILLIGRAM ORAL DAILY Qty = 30 Levothyroxine Sodium (Levothyroxine 0.112MG) 112 MCG TABLET 0.112 MILLIGRAM ORAL DAILY Qty = 90 Disposition: F/U with: Juan Howell MD Follow up: 2 WEEKS Activity: Cont Current activity Diet: Continue same diet Discharge to: HOME Agency needed? N at [id number]
== END 2017-10-10 13:20 | disposition home or self-care (01) | DRG 811 ==
LOC: SDC 09:04 → 2ND 11:38 → SDC 11:38 → 2ND 11:46
PROVIDERS: Family Medicine; Internal Medicine Gastroenterology
PROC: 30233N1 Transfusion of Nonautologous Red Blood Cells into Peripheral Vein, Percutaneous Approach (ICD-10-PCS; principal; 2017-10-09 10:30)
PROC: 0DJD8ZZ Inspection of Lower Intestinal Tract, Via Natural or Artificial Opening Endoscopic (ICD-10-PCS; principal; 2017-10-09 10:30)
DX: D64.9 Anemia, unspecified (principal); K31.811 Angiodysplasia of stomach and duodenum with bleeding; E11.9 Type 2 diabetes mellitus without complications; K92.1 Melena; I25.10 Atherosclerotic heart disease of native coronary artery without angina pectoris; K57.90 Diverticulosis of intestine, part unspecified, without perforation or abscess without bleeding
CPT/HCPCS: P9016